=== PATIENT | female | born 1975 | race African-American/Black ===

== ENCOUNTER → 2017-06-21 | Outpatient (CLI) | payer OTHER ==
--- NOTE | ~2017-06-21 | CT2 ---
[facility] A Service of [facility] & [facility] RADIOLOGY TEXT RESULTS PATIENT: HOMA COREA LOCATION: [facility] : 77 UNIT #: [id number] AGE: [address]: Mike Michel MD SEX: F ORDER DR: [id number] [facility] [address] [place], [place] [address] [id number] O MR#: [id number] Acc #: [id number] NAME: HOMA COREA : 1975 SEX: F STUDY DATE/TIME: 06/21/2017 09:55 UNIT: [facility] ROOM: STUDY DESCRIPTION: CT Abd and Pelv W Cont Attending Physician: Mike Michel M.D. Referring Physician: Mike Michel M.D. Ordering Physician: Mike Michel M.D. Primary Care Physician: Walter Paz Aprn MEDICAL IMAGING REPORT This report is preliminary unless electronic signature is present EXAM CT abdomen and pelvis with contrast 06/21/2017 0955 hours HISTORY 42-year-old complaining of diffuse abdominal pain and stomach pain for 2 months. No prior surgery. COMPARISON None. TECHNIQUE Dynamic helical CT images were obtained from the lung bases through the pubic symphysis with oral and intravenous contrast. Sagittal and coronal reconstructions were performed. Contrast was Isovue-370 100 mL IV. Total exam DLP 767 mGy-cm. This CT examination was performed with one or more of the following radiation dose reduction techniques: automatic exposure control, adjustment of mA and/or kV according to patient size, and iterative reconstruction. FINDINGS Lung bases are clear. There is a single cyst or bleb at the left base. There is no nodule or effusion. The distal esophagus is normal. The liver is diffusely low in attenuation likely fatty change. There is more focal low attenuation abutting the falciform ligament felt also likely fatty change. The spleen is normal in size and density. The pancreas, gallbladder, bile ducts and adrenal glands are normal. The kidneys enhance normally. There is no mass or stone. There is no ureterectasis or ureteral calculus. The abdominal aorta is normal in caliber. [facility] A Service of [facility] RADIOLOGY TEXT RESULTS PATIENT: HOMA COREA LOCATION: [facility] : 77 UNIT #: [id number] AGE: [address]: Mike Michel MD SEX: F ORDER DR: The stomach is unopacified and poorly distended but does appear normal. There is partial opacification of the small bowel without distension or wall thickening. The terminal ileum appears normal. There is no evidence of appendicitis. The colon is unopacified. The colon is poorly distended. There is no definite colonic wall thickening although the wall is difficult to assess given the lack of distension. CT pelvis demonstrates a normal appearance to the uterus. There is no adnexal mass or free fluid. The bones are unremarkable. IMPRESSION 1. Diffuse low attenuation of the liver consistent with steatosis. 2. The gallbladder, pancreas and bile ducts are normal. 3. No renal mass, renal or ureteral calculi. 4. The small bowel is normal. The appendix is normal. 5. The colon is not well opacified with contrast and is poorly distended. There are areas where the colon wall appears slightly thickened however this is most likely due to lack of distension. 6. Negative CT pelvis. Dictated by... Berta Morley M.D. THIS IS AN ELECTRONICALLY VERIFIED REPORT Berta Morley M.D. at 06/21/2017 2:31 PM JAN/calvin TD: 06/21/2017 14:06 JOB #: [id number] MEDICAL IMAGING REPORT Page 1 of 1 COPY
== END | disposition home or self-care (01) ==
LOC: CCAT 08:32
DX: R10.84 Generalized abdominal pain (principal); K76.9 Liver disease, unspecified
CPT/HCPCS: 74177; Q9967